=== PATIENT | male | born 1980 | race Caucasian/White ===

== ENCOUNTER 2021-07-11 11:58 | Emergency (ER) | payer OTHER ==
[~2021-07-11 11:58] MED LIST: FLOMAX0.4 MG PO; ULTRAM50 MG PO; ZOFRAN ODT 4 MG4 MG SL
[2021-07-11 13:06] LABS: HEMOGLOBIN 15.8 gm/dl (14.0-17.5); RED BLOOD COUNT 5.04 M/UL (4.20-5.50); WHITE BLOOD COUNT 19.7 K/UL (4.5-11.0)
[2021-07-11 13:39] LABS: BUN/CREATININE RATIO 11 (0-10)
[2021-07-11] MEDS ORDERED: CLINDAMYCIN HC150 MG PO (16:09)
[2021-07-11] MEDS ORDERED: IBUPROFEN800 MG PO (16:09)
== END 2021-07-11 16:20 | disposition home or self-care (01) ==
LOC: ER1 11:58
PROVIDERS: Physician Assistant
DX: K04.7 Periapical abscess without sinus (principal); K02.9 Dental caries, unspecified; F17.200 Nicotine dependence, unspecified, uncomplicated; Z87.442 Personal history of urinary calculi
CPT/HCPCS: 70487; 80053; 85025; 96374; 96375; 99283; J0295; J1885; Q9967